=== PATIENT | female | born 1990 | race Caucasian/White ===

== ENCOUNTER 2017-08-30 12:37 | Emergency (ER) | payer OTHER ==
[~2017-08-30] VITALS: Ht 160 cm; Wt 72.4 kg
[2017-08-30] MEDS ORDERED: IBUPROFEN 200 MG TABLET PO ONE (13:30)
[2017-08-30] MEDS ORDERED: HYDROcodone/APAP 5/325 TABLET PO ONE (13:30)
[2017-08-30] MEDS ORDERED: IBUPROFEN 200 MG TABLET ONE (13:35)
[2017-08-30] MEDS ORDERED: HYDROcodone/APAP 5/325 TABLET ONE (13:35)
[2017-08-30] MEDS ORDERED: LORazepam 1MG TABLET ONE (13:46)
[2017-08-30] MEDS ORDERED: LORazepam 1MG TABLET PO ONE (14:00)
[2017-08-30] MEDS ORDERED: LIDOCAINE 1%, 20ML SQ ONE (14:00)
[2017-08-30 15:28] VITALS: BP 140/93
== END 2017-08-30 15:31 | disposition home or self-care (01) ==
LOC: ED 15:25
DX: S16.1XXA Strain of muscle, fascia and tendon at neck level, initial encounter (principal); S60.152A Contusion of left little finger with damage to nail, initial encounter; S60.222A Contusion of left hand, initial encounter; S60.221A Contusion of right hand, initial encounter; G89.11 Acute pain due to trauma; X58.XXXA Exposure to other specified factors, initial encounter; Y93.89 Activity, other specified; Y92.89 Other specified places as the place of occurrence of the external cause; Y99.8 Other external cause status
CPT/HCPCS: 12001; 72020; 72050; 72072; 73130; 99284; J3490